=== PATIENT | female | born 1975 | race Caucasian/White ===

== ENCOUNTER → 2016-11-14 | Outpatient (CLI) | payer OTHER ==
[~2016-11-14] MED LIST: COLE1TAB PO; CYCL-259 PO; DOCU-30 PO; ETON1VAG VG; LOSA25TA5 PO; PARO10TA24 PO; SPIR50TA2 PO
[2016-11-14 09:07] LABS: ASPARTATE AMINO TRANSFERASE 10 U/L (15-37); BLOOD UREA NITROGEN 17 mg/dL (7-18)
== END | disposition home or self-care (01) ==
LOC: STAR 08:01
PROVIDERS: ATTEND Orthopaedic Surgery
DX: M65.4 Radial styloid tenosynovitis [de Quervain] (principal)
CPT/HCPCS: 36415; 80053

== ENCOUNTER 2016-11-28 13:37 | Day surgery (SDC) | payer OTHER ==
[~2016-11-28] VITALS: Ht 172.7 cm; Wt 65.5 kg
[2016-11-28] MEDS ORDERED: LACTATED RINGERS 1,000 ML IV SCH (13:59)
[2016-11-28] MEDS ORDERED: LIDOCAINE 1%, 2ML SQ PRN (14:00)
[2016-11-28] MEDS ORDERED: LIDOCAINE 1%, 2ML ONE (14:05)
[2016-11-28] MEDS ORDERED: BUPIVACAINE/PF-EPI 0.25% 1:200K ONE (14:45)
[2016-11-28] MEDS ORDERED: MIDAZOLAM 1 MG/ML, 2ML ONE (14:57)
[2016-11-28] MEDS ORDERED: FENTANYL PF 100 MCG/2ML ONE (14:57)
[2016-11-28] MEDS ORDERED: DEXAMETHASONE 4 MG/ML, 1ML ONE (15:00)
[2016-11-28] MEDS ORDERED: PROPOFOL 10 MG/ML, 20ML ONE (15:00)
[2016-11-28] MEDS ORDERED: ONDANSETRON 2MG/ML, 2ML ONE (15:00)
[2016-11-28] MEDS ORDERED: CEFAZOLIN 1,000 MG ONE (15:00)
[2016-11-28] MEDS ORDERED: ACETAMINOPHEN 325 MG TABLET PO PRN (15:30)
[2016-11-28] MEDS ORDERED: METOCLOPRAMIDE 5 MG/ML, 2ML IV PRN (15:30)
[2016-11-28] MEDS ORDERED: FENTANYL PF 100 MCG/2ML IV PRN (15:30)
[2016-11-28] MEDS ORDERED: OXYcodone 5 MG/5 ML ORAL.SOL UDC PO PRN (15:30)
[2016-11-28] MEDS ORDERED: MEPERIDINE/PF 25MG/0.5ML IVPush PRN (15:30)
[2016-11-28] MEDS ORDERED: HYDROmorphone 1 MG/ML, 1ML IV PRN (15:30)
== END 2016-11-28 16:35 | disposition home or self-care (01) ==
LOC: OR 13:37
PROVIDERS: ATTEND Orthopaedic Surgery
DX: M65.4 Radial styloid tenosynovitis [de Quervain] (principal); I10 Essential (primary) hypertension; K21.9 Gastro-esophageal reflux disease without esophagitis
CPT/HCPCS: 25000; 36415; 84703; J0690; J1100; J2250; J2405; J2704; J3010; J3490; J7120

== ENCOUNTER → 2017-10-13 | Outpatient (CLI) | payer OTHER ==
[~2017-10-13] MED LIST changes: +DOCU-131 PO; -DOCU-30 PO; -PARO10TA24 PO; +PARO10TA56 PO
== END | disposition home or self-care (01) ==
LOC: CFH 14:42
PROVIDERS: ATTEND Specialist
DX: Z12.31 Encounter for screening mammogram for malignant neoplasm of breast (principal)
CPT/HCPCS: 77067

== ENCOUNTER → 2018-04-27 | Outpatient (CLI) | payer OTHER ==
[~2018-04-27] MED LIST changes: +GADOBUTROL 7.5 MMOL/7.5 ML VIAL ONE; +LIDOCAINE 1%, 2ML ONE; +LIDOCAINE-MPF 2%, 2ML ONE; -LOSA25TA5 PO; +LOSA25TA6 PO; -SPIR50TA2 PO; +SPIR50TA4 PO; +TRIAMCINOLONE ACETONIDE 40 MG/ML, 1ML ONE
== END | disposition home or self-care (01) ==
LOC: RAD 13:49
PROVIDERS: ATTEND Orthopaedic Surgery
DX: M24.151 Other articular cartilage disorders, right hip (principal)
CPT/HCPCS: 73525; 73722; A9585; J3301; J3490

== ENCOUNTER 2020-01-17 10:37 | Outpatient (CLI) | payer OTHER ==
[~2020-01-17 10:37] MED LIST changes: -GADOBUTROL 7.5 MMOL/7.5 ML VIAL ONE; -LIDOCAINE 1%, 2ML ONE; -LIDOCAINE-MPF 2%, 2ML ONE; +LOSA25TA25 PO; -LOSA25TA6 PO; -TRIAMCINOLONE ACETONIDE 40 MG/ML, 1ML ONE
== END 2020-01-17 23:59 | disposition home or self-care (01) ==
LOC: CFH 10:37
PROVIDERS: ATTEND Family Medicine
DX: M50.122 Cervical disc disorder at C5-C6 level with radiculopathy (principal); M51.14 Intervertebral disc disorders with radiculopathy, thoracic region; M51.44 Schmorl's nodes, thoracic region
CPT/HCPCS: 72146; 72148

== ENCOUNTER → 2020-02-28 | Outpatient (CLI) | payer OTHER | END | disposition home or self-care (01) | LOC: CFH 13:16 → EDSTATUS 13:30 | PROVIDERS: ATTEND Specialist | DX: Z12.31 Encounter for screening mammogram for malignant neoplasm of breast (principal); N63.10 Unspecified lump in the right breast, unspecified quadrant | CPT/HCPCS: 77063; 77067 ==

== ENCOUNTER → 2020-03-13 | Outpatient (CLI) | payer OTHER | END | disposition home or self-care (01) | LOC: CFH 07:48 | PROVIDERS: ATTEND Specialist | DX: N60.01 Solitary cyst of right breast (principal); R92.8 Other abnormal and inconclusive findings on diagnostic imaging of breast | CPT/HCPCS: 76642; 77065 ==

== ENCOUNTER → 2021-01-08 | Outpatient (CLI) | payer OTHER ==
[~2021-01-08] MED LIST changes: -CYCL-259 PO; +CYCL10TA2 PO
== END | disposition home or self-care (01) ==
LOC: CFH 08:27
PROVIDERS: ATTEND Specialist
DX: N60.01 Solitary cyst of right breast (principal); N63.11 Unspecified lump in the right breast, upper outer quadrant; D17.79 Benign lipomatous neoplasm of other sites; Z98.82 Breast implant status
CPT/HCPCS: 76642; 77062; 77066; G0279

== ENCOUNTER → 2021-03-26 | Outpatient (CLI) | payer OTHER | END | disposition home or self-care (01) | LOC: RAD 08:17 | PROVIDERS: ATTEND Internal Medicine | DX: M25.851 Other specified joint disorders, right hip (principal) ==